=== PATIENT | female | born 1990 | race African-American/Black ===

== ENCOUNTER 2018-07-30 00:36 | Emergency (ER) | payer OTHER ==
[~2018-07-30] VITALS: Ht 160 cm; Wt 52.2 kg
[2018-07-30] MEDS ORDERED: TRAMADOL 50 MG50 MG PO (02:26)
[2018-07-30] MEDS ORDERED: NAPROXEN375 MG PO (02:26)
[2018-07-30] MEDS ORDERED: VENTOLIN HFA 1818 GM INH (02:36)
[2018-07-30 03:13] VITALS: BP 112/51
--- NOTE | 2018-07-30 08:45 | EKG ---
[address] [address] [place] [address] ELECTROCARDIOGRAM REPORT Name: DK RODRIGUEZ Room #: DEP DAFNE Colindres#: [id number] ������������������ Admission: 07/30/18 ������������������ Attend Phys: Discharge: 07/30/18 ������������������ Date of : 89 Report #: [id number] ����������������������������������������������������������������� [id number] THIS REPORT FOR: //name// [facility] ED Test Date: 2018-07-30 Test Time: 00:40:20 Pat Name: DK RODRIGUEZ Department: Room: Gender: F Sales Development Consultant: IBIS : 1990 Requested By: Leonard Stein Order Number: [id number] MD: Reyes Bruce Measurements Intervals [place] Rate: 100 P: 78 CT: 132 QRS: 74 QRSD: 81 T: -9 QT: 311 QTc: 401 Interpretive Statements Sinus tachycardia Nonspecific ST and T wave abnormality No previous ECG available for comparison Electronically Signed On 07-30-2018 8:45:30 CDT by Reyes Bruce [email or web address] ��������������������������������������������� <ELECTRONICALLY SIGNED> ���������������������������������������� By: Reyes Bruce MD, [facility] ��������������������������������������������� 07/30/18 0845 0040 0040 Reyes Bruce MD, FACC /EPI
== END 2018-07-30 03:14 | disposition home or self-care (01) ==
LOC: ER 00:36
DX: R07.89 Other chest pain (principal); R06.02 Shortness of breath; R09.81 Nasal congestion; J45.909 Unspecified asthma, uncomplicated; F17.210 Nicotine dependence, cigarettes, uncomplicated

== ENCOUNTER 2018-10-26 07:55 | Emergency (ER) | payer OTHER ==
[~2018-10-26] VITALS: Ht 160 cm; Wt 54.4 kg
[~2018-10-26 07:55] MED LIST: NAPROXEN375 MG PO; TRAMADOL 50 MG50 MG PO; VENTOLIN HFA 1818 GM INH
[2018-10-26 08:33] VITALS: BP 121/81
[2018-10-26 08:36] LABS: ABSOLUTE NEUTROPHILS 6.7 thou/uL (1.4-8.2); BASOPHILS 0.6 % (0.0-2.0); EOSINOPHILS 0.2 % (0.0-3.0); HEMATOCRIT 38.8 % (37.0-47.0); HEMOGLOBIN 13.2 gm/dL (12.0-15.0); LYMPHOCYTES 21.4 % (24.0-44.0); MCH 31.2 pg (26.0-34.0); MCV 91.7 fL (80.0-100.0); MONOCYTES 5.8 % (1.0-8.0); PLATELET COUNT 240 thou/uL (150-400); RBC 4.24 mil/uL (4.20-5.00); RDW 13.4 % (10.5-14.5); WBC 9.3 thou/uL (4.0-11.0)
[2018-10-26 08:46] LABS: CALCIUM 9.4 mg/dL (8.5-10.1); CREATININE 0.9 mg/dL (0.6-1.0); POTASSIUM 3.4 mmol/L (3.5-5.1)
[2018-10-26 08:53] LABS: ALBUMIN 4.3 g/dL (3.4-5.0); TOTAL BILIRUBIN 0.5 mg/dL (<0.1-1.0); TOTAL PROTEIN 7.8 g/dL (6.4-8.2)
== END 2018-10-26 09:20 | disposition home or self-care (01) ==
LOC: ER 07:55
PROVIDERS: Emergency Medicine
DX: R10.9 Unspecified abdominal pain (principal); F17.210 Nicotine dependence, cigarettes, uncomplicated; J45.909 Unspecified asthma, uncomplicated

== ENCOUNTER 2019-06-17 22:15 | Emergency (ER) | payer OTHER ==
[~2019-06-17] VITALS: Ht 160 cm; Wt 54.4 kg
[2019-06-17 22:55] LABS: ABSOLUTE NEUTROPHILS 2.1 thou/uL (1.4-8.2); BASOPHILS 0.5 % (0.0-2.0); EOSINOPHILS 0.9 % (0.0-3.0); HEMATOCRIT 34.6 % (37.0-47.0); HEMOGLOBIN 11.6 gm/dL (12.0-15.0); LYMPHOCYTES 47.1 % (24.0-44.0); MCHC 33.6 g/dL (28.0-37.0); MCV 92.5 fL (80.0-100.0); MONOCYTES 11.5 % (1.0-8.0); PLATELET COUNT 241 thou/uL (150-400); RBC 3.74 mil/uL (4.20-5.00); RDW 13.7 % (10.5-14.5); WBC 5.3 thou/uL (4.0-11.0)
[2019-06-17 23:02] LABS: CALCIUM 8.9 mg/dL (8.5-10.1); CREATININE 0.8 mg/dL (0.6-1.0); POTASSIUM 3.5 mmol/L (3.5-5.1)
[2019-06-17 23:09] LABS: TOTAL BILIRUBIN 0.4 mg/dL (<0.1-1.0); TOTAL PROTEIN 7.7 g/dL (6.4-8.2)
[2019-06-18 00:03] LABS: URINE BILIRUBIN NEGATIVE (Negative); URINE BLOOD NEGATIVE (Negative); URINE CLARITY SL CLOUDY; URINE COLOR YELLOW; URINE GLUCOSE-RANDOM* NEGATIVE (Negative); URINE KETONES NEGATIVE (Negative); URINE LEUKOCYTES-REFLEX TRACE (Negative); URINE NITRITE-REFLEX NEGATIVE (Negative); URINE PROTEIN (DIPSTICK) NEGATIVE (Negative); URINE SPECIFIC GRAVITY 1.025 (1.005-1.035)
[2019-06-18] MEDS ORDERED: ZOFRAN ODT4 MG PO ×2 (00:36→01:07)
[2019-06-18] MEDS ORDERED: CARAFATE 1 GM TA1 G1 PO ×2 (00:36→01:07)
[2019-06-18] MEDS ORDERED: PEPCID20 MG PO ×2 (00:36→01:07)
[2019-06-18 01:16] VITALS: BP 99/66
== END 2019-06-18 01:17 | disposition home or self-care (01) ==
LOC: ER 22:15
PROVIDERS: Emergency Medicine
DX: O99.611 Diseases of the digestive system complicating pregnancy, first trimester (principal); K29.70 Gastritis, unspecified, without bleeding; J45.909 Unspecified asthma, uncomplicated; O99.331 Smoking (tobacco) complicating pregnancy, first trimester; F17.210 Nicotine dependence, cigarettes, uncomplicated; Z3A.01 Less than 8 weeks gestation of pregnancy